=== PATIENT | male | born 1985 | race African-American/Black ===

== ENCOUNTER 2019-03-31 00:08 | Emergency (ER) | payer OTHER ==
[2019-03-31 01:55] VITALS: BP 146/98; PULSE 105; TEMP 98.2; BMI 30.8
[2019-03-31] MEDS ORDERED: AZITHROMYCIN 500 MG TABLET PO ONE (02:23)
--- NOTE | 2019-03-31 02:26 | PDOC ---
Attending Attestation - Resident Resident Name: [email or web address] - ED Attending Attestation I have performed the following: I have examined & evaluated the patient, The case was reviewed & discussed with the resident, I agree w/resident's findings & plan - HPI HPI: 03/31/19 02:25 see resident hpi - Physicial Exam PE: 03/31/19 02:25 agree with resident exam - Medical Decision Making 03/31/19 02:25 33-year-old male with history of syphilis and multiple unprotected sexual encounters requesting STD evaluation Plan for GC and chlamydia as well as RPR and HIV testing Will prophylactically treat with Rocephin and Zithromax with safe sex instructions on discharge
[2019-03-31] MEDS ORDERED: AZITHROMYCIN 500 MG TABLET ONE (02:40)
--- NOTE | 2019-03-31 02:45 | PDOC ---
History of Present Illness - General Chief Complaint: HIV Testing Stated Complaint: STD Time Seen by Provider: 03/31/19 02:15 History Source: Patient Exam Limitations: No Limitations - History of Present Illness Initial Comments: 03/31/19 02:26 Patient is a 33M with history of syphilis here today for STD testing. Patient states that he is concerned because he has some redness on his penis along with some irritation with urination and small amount of discharge. Denies fevers, chills, nausea, vomiting. Endorses a general malaise. Denies headache, chest pain, cough, sore throat, earache. Denies testicular pain. Endorses multiple sexual partners but denies any known exposure. Past History - Past Medical History Allergies/Adverse Reactions: Allergies Allergy/AdvReac Type Severity Reaction Status Date / Time No Known Allergies Allergy Verified 03/31/19 01:52 - Psycho Social/Smoking Cessation Hx Smoking History: Never smoked Hx Alcohol Use: No Drug/Substance Use Hx: No Review of Systems - Review of Systems Able to Perform ROS?: Yes Comments:: 03/31/19 02:29 GENERAL/CONSTITUTIONAL: No fever or chills. HEAD, EYES, EARS, NOSE AND THROAT: No change in vision. No sore throat. CARDIOVASCULAR: No chest pain or shortness of breath RESPIRATORY: No cough, wheezing, or hemoptysis. GASTROINTESTINAL: No nausea, vomiting, diarrhea or constipation. GENITOURINARY: No dysuria, frequency, or change in urination. MUSCULOSKELETAL: No joint or muscle swelling or pain. No neck or back pain. SKIN: No rash NEUROLOGIC: No headache, vertigo, loss of consciousness, or change in strength/ sensation. ALLERGIC/IMMUNOLOGIC: No hives or skin allergy. *Physical Exam - Vital Signs Last Vital Signs Temp Pulse Resp BP Pulse Ox 98.2 F 105 H 18 146/98 97 03/31/19 00:10 03/31/19 00:10 03/31/19 00:10 03/31/19 00:10 03/31/19 00:10 - Physical Exam Comments: 03/31/19 02:29 GENERAL: Awake, alert, and fully oriented, in no acute distress HEAD: No signs of trauma, normocephalic, atraumatic EYES: PERRLA, EOMI, sclera anicteric, conjunctiva clear ENT: Auricles normal inspection, hearing grossly normal, nares patent, oropharynx clear without exudates. Moist mucosa NECK: Normal ROM, supple, no lymphadenopathy, JVD, or masses LUNGS: No distress, speaks full sentences, clear to auscultation bilaterally HEART: Regular rate and rhythm, normal S1 and S2, no murmurs, rubs or gallops, peripheral pulses normal and equal bilaterally. ABDOMEN: Soft, nontender, normoactive bowel sounds. No guarding, no rebound. No masses EXTREMITIES: Normal inspection, Normal range of motion, no edema. No clubbing or cyanosis. NEUROLOGICAL: Cranial nerves II through XII grossly intact. Normal speech, normal gait, no focal sensorimotor deficits SKIN: Warm, Dry, normal turgor, no rashes or lesions noted. : Small erythematous lesion on dorsal aspect of penis. Two nontender testicles. No discharge noted. ED Treatment Course - LABORATORY CBC & Chemistry Diagram: 03/31/19 02:30 03/31/19 02:30 Medical Decision Making - Medical Decision Making 03/31/19 02:45 Patient is 33M here today requesting STD testing and treatment. Vitals normal and stable. Will treat with ceftriaxone and azithro. GC, HIV, RPR sent. 03/31/19 06:37 HIV negative, cbc, cmp reassuring. UA consistent with g/c. Patient discharged with return precautions. Discharge - Discharge Information Problems reviewed: Yes Clinical Impression/Diagnosis: Urethritis Condition: Good Disposition: HOME - Admission No - Follow up/Referral - Patient Discharge Instructions Patient Printed Discharge Instructions: DI for Urethritis Additional Instructions: Please follow up with your primary care doctor this week. One of your tests will not result while you are in the ED. You will be called if the result is abnormal. You may call medical records to get the result tomorrow. Please return to the ED if you have any new, worsening or concerning symptoms, especially fever, increasing pain and shortness of breath. - Post Discharge Activity
[2019-03-31 02:58] LABS: HEMATOCRIT 45.9 % (35.4-49); HEMOGLOBIN 15.1 GM/dL (11.7-16.9); MCH 30.8 pg (25.7-33.7); MCHC 32.8 g/dl (32.0-35.9); MEAN CELL VOLUME 93.8 fl (80-96); MEAN PLT VOLUME 10.1 fl (7.5-11.1); PLATELET COUNT 190 K/MM3 (134-434); RDW 13.2 % (11.9-15.9); WHITE BLOOD COUNT 10.8 K/mm3 (4.0-10.0)
[2019-03-31 03:17] LABS: ALBUMIN 4.4 g/dl (3.4-5.0); BILIRUBIN,TOTAL 1.3 mg/dL (0.2-1); BLOOD UREA NITROGEN 8.6 mg/dL (7-18); CALCIUM 9.3 mg/dL (8.5-10.1); POTASSIUM 3.7 mmol/L (3.5-5.1); TOT PROT 7.6 g/dl (6.4-8.2)
[2019-03-31 03:47] LABS: HYALINE CASTS 15 /lpf (0-8); PH,URINE 5.5 (5.0-8.0); URINE APPEARANCE CLEAR; URINE BILIRUBIN 2+ (NEGATIVE); URINE COLOR DK YELLOW; URINE GLUCOSE (UA) NEGATIVE (NEGATIVE); URINE KETONE 1+ (NEGATIVE); URINE LEUK ESTERASE 1+ (NEGATIVE); URINE NITRITE NEGATIVE (NEGATIVE); URINE PROTEIN 1+ (NEGATIVE); URINE RBC 3 /hpf (0-4); URINE WBC 27 /hpf (0-5)
== END 2019-03-31 03:55 | disposition home or self-care (01) ==
LOC: JER 00:08
DX: N34.2 Other urethritis (principal); Z86.19 Personal history of other infectious and parasitic diseases
CPT/HCPCS: 36415; 80053; 81003; 85027; 86593; 87086; 87389; 87491; 87591; 96372; 99281-25